=== PATIENT | female | born 1985 | race Caucasian/White ===

== ENCOUNTER 2023-09-27 11:19 | Outpatient (CLI) | payer OTHER ==
--- NOTE | 2023-09-27 15:55 | XRAY Report ---
PROCEDURE: Wrist 3+V RT INDICATIONS: OTHER SPECIFIED SPRAIN OF RIGHT WRIST TECHNIQUE: 3 views of the wrist were acquired. COMPARISON: None. FINDINGS: Bones: No fractures or dislocations. No suspicious bony lesions. Soft tissues: No suspicious soft tissue calcifications or masses. IMPRESSION: No acute bony abnormality. Reviewed by: Jessica Venegas MD on 09/27/2023 3:53 PM PST Approved by: Jessica Venegas MD on 09/27/2023 3:53 PM PST Station ID: [id number]
== END 2023-09-27 23:59 | disposition home or self-care (01) ==
LOC: DI.N 11:19
PROVIDERS: ATTEND Family Medicine
DX: S63.591A Other specified sprain of right wrist, initial encounter (principal)